=== PATIENT | male | born 1980 | race Caucasian/White ===

== ENCOUNTER 2018-07-16 08:06 | Day surgery (SDC) | payer BC ==
[~2018-07-16] VITALS: Ht 177.8 cm; Wt 118.0 kg
[~2018-07-16 08:06] MED LIST: FLEXERIL 1010 MG/TAB PO; PERCOCET 325 MG1 TA2 PO
[2018-07-16 08:47] VITALS: BP 99/60; PULSE 86; TEMP 97.9
[2018-07-16] MEDS ORDERED: PHENTERMINE PO (08:53)
[2018-07-16] MEDS ORDERED: POT CITRATE PO (08:53)
[2018-07-16] MEDS ORDERED: SAXENDA6 MG/ML SQ (08:54)
[2018-07-16 11:53] VITALS: TEMP 98.4
[2018-07-16 12:30] VITALS: BP 117/60; PULSE 87
[2018-07-16 12:45] VITALS: BP 126/64; PULSE 72
[2018-07-16] MEDS ORDERED: NORCO 325 MG-51 TAB PO (13:23)
== END 2018-07-16 13:40 | disposition home or self-care (01) ==
LOC: SDCO 08:06
DX: K42.9 Umbilical hernia without obstruction or gangrene (principal); G47.30 Sleep apnea, unspecified; Z82.49 Family history of ischemic heart disease and other diseases of the circulatory system; Z82.3 Family history of stroke; Z83.3 Family history of diabetes mellitus
CPT/HCPCS: C1781; J1100; J1885; J2405; J2704; J3010; J7120